=== PATIENT | male | born 1965 | race Hispanic/Latino ===

== ENCOUNTER 2016-12-05 15:47 | Emergency (ER) | payer OTHER ==
[~2016-12-05] VITALS: Ht 175.3 cm; Wt 99.8 kg
[2016-12-05] MEDS ORDERED: TORADOL IV STA (16:06)
[2016-12-05] MEDS ORDERED: NS 1000ML 1,000 ML IV STA (16:06)
--- NOTE | 2016-12-05 16:10 | NUR ---
EKG EKG COMPLETED
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
[2016-12-05 16:21] LABS: BASOPHIL # 0.1 10^3/uL (0.0-0.1); BASOPHIL % 0.5 % (0.0-0.2); EOSINOPHIL # 0.1 10^3/uL (0.0-0.2); EOSINOPHIL % 0.7 % (0.0-5.0); HEMATOCRIT 46.2 % (37.0-53.0); HEMOGLOBIN 15.9 g/dL (13.9-16.3); LYMPHOCYTES # 2.8 10^3/uL (1.0-4.8); LYMPHOCYTES % 24.1 % (24.0-44.0); MEAN CELL HGB 28.1 pg (26-34); MEAN CELL HGB CONCENTRATION 34.4 g/dL (33-37); MEAN CORP VOLUME 81.8 fL (78-100); MEAN PLATELET VOLUME 10.6 fL (7.8-11.0); MONOCYTES # 0.8 10^3/uL (0.3-0.8); MONOCYTES % 6.8 % (5.0-12.0); NEUTROPHILS % 67.6 % (41.0-85.0); RED CELL DISTRIBUTION WIDTH 13.6 % (11.5-14.5); WHITE BLOOD CELL 11.8 10^3/uL (4.5-11.0)
[2016-12-05] MEDS ORDERED: TORADOL ONE (16:21)
[2016-12-05] MEDS ORDERED: NS 1000ML 1,000 ML ONE (16:21)
--- NOTE | 2016-12-05 16:33 | NUR ---
CT PT TAKEN TO CT
[2016-12-05 16:45] LABS: ALANINE AMINOTRANSFERASE 34 U/L (12-78); ALKALINE PHOSPHATASE 103 U/L (50-136); ASPARTATE AMINO TRANSFERASE 21 U/L (0-35); CALCIUM 9.1 mg/dL (8.4-10.5); CARBON DIOXIDE 26.4 mmol/L (20.0-32); GLUCOSE 107 mg/dL (70-110)
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
--- NOTE | 2016-12-05 16:50 | NUR ---
CT PT BACK FROM CT
--- NOTE | 2016-12-05 17:07 | DIREP ---
PROCEDURE:CT CHEST WITH CONTRAST COMPARISON:None. INDICATIONS:Chest pain TECHNIQUE:Helical sections through the chest were performed from the lung apices through the diaphragms with IV contrast. Sagittal and coronal reconstructions are obtained from source images. FINDINGS: LUNGS:Normal. No visible pulmonary disease. PLEURA:Normal. No mass or effusion. CARDIAC:Normal. No enlargement, pericardial thickening, or significant calcification. MEDIASTINUM:Normal. No mass or adenopathy. AKILA:Normal. No mass or adenopathy. AORTA:Normal. No aneurysm. CHEST WALL:Normal. No mass or axillary adenopathy. LIMITED ABDOMEN:The left kidney is not visualized on the limited images of the upper abdomen. BONES:Normal. No bony lesion or fracture. OTHER:Negative. CONCLUSION: 1. Normal study. No infiltrates or other abnormalities are seen in the chest. 2. Limited images of the upper abdomen did not visualize the left kidney. Dictated by: Jesus Schmidt M.D. On 12/05/2016 at 05:02 PM
[2016-12-05 17:34] VITALS: BP 139/87
== END 2016-12-05 17:25 | disposition home or self-care (01) ==
LOC: ER 15:47 → EDBD 15:47 → ER 17:25
DX: S20.219A Contusion of unspecified front wall of thorax, initial encounter (principal); M25.511 Pain in right shoulder; V48.0XXA Car driver injured in noncollision transport accident in nontraffic accident, initial encounter; Y93.89 Activity, other specified; Y92.89 Other specified places as the place of occurrence of the external cause; Y99.8 Other external cause status
CPT/HCPCS: 36415; 71260; 73030; 80053; 82550; 84484; 85025; 93005; 96361; 96374; 99285; J1885; J7030; Q9967